=== PATIENT | female | born 1950 | race Caucasian/White ===

== ENCOUNTER → 2021-09-06 | Outpatient (CLI) | payer MEDICARE | LOC: KOH-I 12:31 | DX: R05.9 Cough, unspecified (principal); R91.8 Other nonspecific abnormal finding of lung field | CPT/HCPCS: 71046 ==

== ENCOUNTER → 2021-09-16 | Outpatient (CLI) | payer MEDICARE | LOC: CT 14:14 | DX: R93.89 Abnormal findings on diagnostic imaging of other specified body structures (principal); R05.9 Cough, unspecified; J45.909 Unspecified asthma, uncomplicated; E07.9 Disorder of thyroid, unspecified; R91.8 Other nonspecific abnormal finding of lung field | CPT/HCPCS: 71260; Q9967 ==

== ENCOUNTER → 2021-09-20 | Outpatient (CLI) | payer MEDICARE | LOC: KOH-I 14:30 | DX: E04.2 Nontoxic multinodular goiter (principal); R93.89 Abnormal findings on diagnostic imaging of other specified body structures | CPT/HCPCS: 76536 ==

== ENCOUNTER → 2021-10-16 | Outpatient (CLI) | payer MEDICARE | LOC: HEART 5 11:49 | DX: R05.9 Cough, unspecified (principal) | CPT/HCPCS: 94060 ==